=== PATIENT | male | born 1955 | race Caucasian/White ===

== ENCOUNTER 2018-06-15 08:22 | Emergency (ER) | payer OTHER ==
[2018-06-15] MEDS ORDERED: LISI-362 PO (08:33)
[2018-06-15] MEDS ORDERED: RANI-366 PO (08:33)
[2018-06-15] MEDS ORDERED: POTA-28 PO (08:33)
[2018-06-15] MEDS ORDERED: ALEN70TA43 PO (08:36)
[2018-06-15] MEDS ORDERED: CALC-734 PO (08:36)
[2018-06-15] MEDS ORDERED: FLUO-177 PO (08:36)
[2018-06-15] MEDS ORDERED: MULT-1335 PO (08:36)
[2018-06-15] MEDS ORDERED: PRAZ1CAP26 PO (08:36)
[2018-06-15] MEDS ORDERED: ASPI81TA86 PO (08:36)
[2018-06-15] MEDS ORDERED: GI COCKTAIL 60 ML BTL PO PRN (08:40)
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
--- NOTE | 2018-06-15 08:49 | EKG ---
FACILITY: [facility] - [place] PATIENT NAME: NELA GRUBER : [id number] MR: [id number] V: [id number] EXAM DATE: ORDERING PHYSICIAN: MADISON VILLANUEVA TECHNOLOGIST: DENI Jain Reason : CP Blood Pressure : / mmHG Vent. Rate : 098 BPM Atrial Rate : 098 BPM P-R Int : 162 ms QRS Dur : 096 ms QT Int : 360 ms P-R-T Axes : 049 -28 064 degrees QTc Int : 459 ms Sinus rhythm Borderline tachycardia Left axis No acute appearing ST-T findings No previous ECGs available Confirmed by LISA MARIE ([id number] on 06/15/2018 3:50:58 PM Referred By: RICH Confirmed By:LISA MARIE
[2018-06-15] MEDS ORDERED: LIDOCAINE 2% VISC SLN 15ML UDC PO ONE (08:50)
[2018-06-15] MEDS ORDERED: MAG HYD/AL HYD/SIMETH 30ML UDC PO ONE (08:50)
[2018-06-15] MEDS ORDERED: ATRO/SCOPOL/HYOSCY/PB 5 ML ELX PO ONE (08:50)
[2018-06-15 08:55] LABS: PLATELET COUNT, AUTOMATED 198 K/uL (150-450)
[2018-06-15 09:30] VITALS: BP 162/111
--- NOTE | 2018-06-15 09:39 | RADIOLOGY IMAGING REPORT ---
FACILITY: [facility] - [place] PATIENT NAME: Cipriano Bashir : 1955 MR: [id number] V: [id number] EXAM DATE: ORDERING PHYSICIAN: MADISON VILLANUEVA TECHNOLOGIST: Location: [facility] [place] Patient: Cipriano Bashir : 1955 Visit/Account:[id number] Date of Sevice: 06/15/2018 CHEST PA AND LAT COMPARISON: None. HISTORY: Chest pain FINDINGS: CARDIAC/VASC: No cardiac silhouette abnormality or cardiomegaly. Unremarkable pulmonary vasculatu re. MEDIASTINUM: No visible mass or adenopathy. Slight calcifications in the aortic arch. LUNGS/PLEURA: No pneumothorax. No significant pulmonary parenchymal abnormalities. No effusion or p leural thickening. BONES: No fracture or visible bony lesion. OTHER:Negative. IMPRESSION: No acute cardiopulmonary process. There is no cause for chest pain identified. Report Dictated By: Sujit Joshua at 06/15/2018 9:34 AM Report E-Signed By: Sujit Joshua at 06/15/2018 9:35 AM WSN:[id number]
== END 2018-06-15 10:04 | disposition home or self-care (01) ==
LOC: ER 08:32
DX: R19.6 Halitosis (principal)
CPT/HCPCS: 71046; 82040; 82247; 82310; 82374; 82435; 82565; 82947; 84075; 84132; 84155; 84295; 84450; 84460; 84484; 84520; 85025; 93005; 99284